=== PATIENT | male | born 1965 ===

== ENCOUNTER → 2020-04-08 14:23 | Outpatient (CLI) | payer OTHER | END | disposition home or self-care (01) | LOC: LAB 14:23 | PROVIDERS: ATTEND Urology | DX: R97.20 Elevated prostate specific antigen [PSA] (principal) ==

== ENCOUNTER 2020-04-25 07:23 | Outpatient (CLI) | payer OTHER | END 2020-04-25 07:37 | disposition home or self-care (01) | LOC: SONOGRAMA 07:23 | PROVIDERS: ATTEND Urology | DX: D29.1 Benign neoplasm of prostate (principal) ==

== ENCOUNTER 2022-06-08 16:18 | Outpatient (CLI) | payer OTHER | END 2022-06-08 16:19 | disposition home or self-care (01) | LOC: LAB 16:18 | PROVIDERS: ATTEND Urology | DX: R97.20 Elevated prostate specific antigen [PSA] (principal) ==

== ENCOUNTER 2022-06-25 07:18 | Outpatient (CLI) | payer OTHER | END 2022-06-25 07:28 | disposition home or self-care (01) | LOC: SONOGRAMA 07:18 | PROVIDERS: ATTEND Urology | DX: D29.1 Benign neoplasm of prostate (principal); N41.1 Chronic prostatitis; R97.20 Elevated prostate specific antigen [PSA] ==